=== PATIENT | male | born 1970 | race Caucasian/White ===

== ENCOUNTER 2018-07-22 14:03 | Emergency (ER) | payer OTHER ==
[~2018-07-22] VITALS: Ht 182.9 cm; Wt 104.3 kg
--- NOTE | 2018-07-22 14:11 | NUR ---
NO ANSWER IN ER LOBBY
--- NOTE | 2018-07-22 14:22 | NUR ---
NO ANSWER IN ER LOBBY WHEN CALLED BY OSWALDO MUNOZ
[2018-07-22 14:32] VITALS: BP 139/78
--- NOTE | 2018-07-22 14:43 | NUR ---
Patient ambulated to bed 1. RN evaluating patient at bedside.
--- NOTE | 2018-07-22 14:50 | NUR ---
PT IS A 47 Y/O MALE WHO PRESENTS TO THE ED C/O MED REFILL. PER PT IS A DM AND RAN OUT OF RX OF INSULIN. PT DENIES ANY PAIN AT THIS TIME. PT DENIES CP, SOB, N/V/D. PT DENIES BLURRY VISION. PT AWAKE AND ALERT, RR EVEN/UNLABORED. PT REPOSITIONED FOR COMFORT, BED IN LOWEST POSITION. ER PROVIDER NOTIFIED. WILL CONTINUE TO MONITOR. HX OF DM, HTN, HYPERLIPDIMIA. NKA
--- NOTE | 2018-07-22 15:04 | NUR ---
Patient transferred to chair E for further care.
[2018-07-22 15:44] VITALS: BP 132/82
--- NOTE | 2018-07-22 15:44 | NUR ---
Patient discharged with v/s stable. Written and verbal after care instructions given and explained. Patient alert, oriented and verbalized understanding of instructions. Ambulatory with steady gait. All questions addressed prior to discharge. ID band removed. Patient advised to follow up with PMD. Rx of HUMALOG 100UNIT/ML AND LANTUS 100UNITS/ML given. Patient educated on indication of medication including possible reaction and side effects. Opportunity to ask questions provided and answered.
== END 2018-07-22 15:44 | disposition home or self-care (01) ==
LOC: MED 14:03
DX: E11.65 Type 2 diabetes mellitus with hyperglycemia (principal); Z76.0 Encounter for issue of repeat prescription; E78.5 Hyperlipidemia, unspecified; I10 Essential (primary) hypertension; Z79.4 Long term (current) use of insulin
CPT/HCPCS: 81002; 99283